=== PATIENT | male | born 1955 | race Caucasian/White ===

== ENCOUNTER 2017-02-21 19:23 | Inpatient (IN) | payer OTHER ==
[~2017-02-21] VITALS: Ht 167.6 cm; Wt 61.0 kg
[2017-02-21 19:47] VITALS: BP 116/57; RESP 20
[2017-02-21 20:25] VITALS: PULSE 96
[2017-02-21] MEDS ORDERED: ACET-141 PO (20:25)
[2017-02-21 20:48] VITALS: BP 116/57; PULSE 98; RESP 20
[2017-02-21] MEDS ORDERED: NACL 0.9% 3 ML SYG IV SCH (21:30)
[2017-02-21] MEDS ORDERED: ONDANSETRON 4 MG INJ IV PRN (21:30)
--- NOTE | 2017-02-21 21:54 | HP ---
Date/Time of Note Date/Time of Note DATE: 02/21/17 TIME: 21:48 Assessment/Plan VTE Prophylaxis VTE Prophylaxis Intervention: LMWH Assessment/Plan Chief Complaint/Hosp Course This is a 7-year-old male being admitted to the telemetry floor for: #1 chest pain: Rule out ACS: At the current time initial troponins at the transferring facility were negative. Will trend cardiac enzymes. EKG at the transferring facility appears to be normal sinus at approximately 90 bpm with no overt ST or T-wave abnormalities. Consult cardiology. Will also order a chest x-ray and echocardiogram.. Will check lipid panel TSH CBC. #2 alcohol withdrawal: Patient blood alcohol level of approximately 242. At the current time will put the patient on a daily banana bag. We will also start patient on Librium taper. Ativan 2 mg every 6 hours for anxiety. Repeat a CMP in the morning. #3 hypertension: Patient is not on any outpatient medications. Will continue to monitor blood pressure at this time and start any medications as indicated. #4 DVT and GI prophylaxis: Lovenox, Protonix Further treatment strategy will be implemented as per the clinical course Problems: HPI/ROS Admit Date/Time Admit Date/Time Feb 21, 2017 at 19:23 Hx of Present Illness Chief complaint: Chest pain This is a 61-year-old male who presented originally to [facility] complaining of chest pain and shortness of breath. Patient stated that about a week ago he had gone to [facility] with a similar symptoms. He states that he had similar symptoms starting today at around 9 AM and the pain was localized in the left chest. He stated that it was tight. It would last on and off for approximately 15-20 minutes. The pain did not radiate. There is no other obvious aggravating or relieving factors. He did report some shortness of breath and some nausea but no diaphoresis. Of note patient also reports daily alcohol use. At the present time he states that his last alcoholic drink was 3 days ago however on the transfer paperwork from [facility] states 2 days ago. Of note patient was also appearing to be going through symptoms of alcohol withdrawal he was given a banana bag and Ativan at the transferring facility. Patient's symptoms started to improve. At the present time patient is comfortable at the bedside. Is not complaining of any chest pain at this time. He does though state that he is feeling a little anxious. Denies any auditory or visual hallucinations. Allergies: NKDA Medications: None ROS Const: As per HPI Eyes : No pain discharge or redness or change in visual acuity ENT: No pain, sore throat, congestion, congestion, dysphagia or discharge Respiratory: No shortness of breath, cough, sputum, wheezing, or pleuritic pain Cardiovascular: As per HPI GI : no change in appetite, abdominal pain, nausea, vomiting, diarrhea, constipation, or change in the color his stool Genitourinary: No dysuria, hematuria, flank pain , discharge or CVA tenderness Musculoskeletal: No joint pain, back pain, neck pain, restricted range of motion in neck or joints Skin: No rash, bruising or hives Neuro: No headache, dizziness, syncope, seizure, focal weakness Endocrine: No polyuria, polydipsia, temperature intolerance Psych: As per HPI PMH/Family/Social Past Medical History Hypertension Past Surgical History Past Surgical Hx: no surgical history Family History Significant Family History: asthma (Father), cancer (Mom colon cancer) Social History Alcohol Use: heavy (12 pack of beer per day last drink apparently 2-3 days ago) Exam/Review of Systems Vital Signs Vitals Vital Signs Date Time Temp Pulse Resp B/P Pulse Ox O2 Delivery O2 Flow Rate FiO2 02/21/17 20:48 98.0 98 20 116/57 96 Room Air Exam Exam General: Patient is well-developed and well-nourished, answering questions appropriately, appears comfortable. HEENT: Atraumatic, normocephalic. The pupils are equal, round and reactive. Extraocular motor are intact Neck: Supple with full range of motion. No rigidity or meningismus Chest: Nontender Lungs: Clear to auscultation bilaterally no crackles rales or wheezing Heart: Normal S1-S2, Regular rhythm and rate. No murmur, S3, or S4 Abdomen: Soft , nontender, nondistended , bowel sounds are present. No guarding no rebound tenderness , No masses or organomegaly. Extremities: Normal to inspection, no edema no cyanosis Neurologic: Normal mental status, speech normal, cranial nerves II through XII are intact, motor and sensory are intact, no focal weakness, denies any auditory or visual hallucinations. Additional Comments EKG normal sinus at approximately 90 bpm with no overt ST or T-wave abnormalities Patient's lab work at the outside facility showed a hemoglobin of 14 hematocrit 14.1 white blood cell count of 4.6 and platelets of 172 sodium 132 potassium 3.8 chloride 90 bicarb 18 BUN 16 creatinine of 0.9 with a GFR of 93 glucose of 147 calcium of 9.1 AST is 96 ALT was 95 alk phos 101 troponin less than 0.009 albumin is 4.7 UA was negative. Urine drug screen was positive for benzodiazepines. Ethanol alcohol level was 242 Medications Medications Current Medications Lorazepam (Ativan) 2 mg Q6H PRN IV ANXIETY; Start 02/21/17 at 21:30; Status UNV Ondansetron HCl (Zofran Inj) 4 mg Q6H PRN IV NAUSEA AND/OR VOMITING; Start at 21:30; Status UNV Aspirin (Aspirin) 81 mg DAILY PO ; Start 02/22/17 at 09:00; Status UNV Pantoprazole (Protonix Iv) 40 mg DAILY@06 IV ; Start 02/22/17 at 06:00; Status UNV Enoxaparin Sodium (Lovenox) 40 mg DAILY SC ; Start 02/22/17 at 09:00; Status UNV Chlordiazepoxide (Librium) 50 mg TID PO ; Start 02/21/17 at 21:40; Stop at 21:39; Status UNV Chlordiazepoxide (Librium) 25 mg QID PO ; Start 02/22/17 at 21:40; Stop at 21:39; Status UNV Chlordiazepoxide (Librium) 25 mg TID PO ; Start 02/23/17 at 21:40; Stop at 21:39; Status UNV ERNESTINE JOHNS Feb 21, 2017 21:54
[2017-02-21 22:36] VITALS: Ht 167.6 cm; Wt 61.0 kg
[2017-02-21 23:12] LABS: TROPONIN-I 0.016 ng/ml (0.00-0.12)
[2017-02-21] MEDS: CHLORDIAZEPOXIDE 25 MG CAP PO SCH (23:12)
[2017-02-21 23:14] LABS: CK-MB 1.07 ng/ml (0.0-2.4)
[2017-02-21] MEDS: LORAZEPAM 2 MG INJ IV PRN (23:19)
[2017-02-22] VITALS (12 sets, daily range): BP systolic 115–166; BP diastolic 65–88; PULSE 58–83; RESP 18–20
[2017-02-22] MEDS: LORAZEPAM 2 MG INJ IV PRN ×3 (05:44→22:23)
[2017-02-22] MEDS: PANTOPRAZOLE 40 MG INJ IV SCH (05:44)
[2017-02-22 07:17] LABS: ADD SCAN DIFF NO
[2017-02-22 07:21] LABS: BASOPHILS % 0.6 % (0.0-2.0); EOSINOPHILS # 0.1 10^3/ul (0.0-0.5); EOSINOPHILS % 2.8 % (0.0-7.0); HEMATOCRIT 37.8 % (42.0-52.0); HEMOGLOBIN 13.1 g/dl (14.0-18.0); LYMPHOCYTES % 31.2 % (15.0-51.0); MEAN CORPUSCULAR HEMOGLOBIN 33.9 pg (29.0-33.0); MEAN CORPUSCULAR HGB CONC 34.7 g/dl (32.0-37.0); MEAN CORPUSCULAR VOLUME 97.9 fl (82.0-101.0); MEAN PLATELET VOLUME 9.8 fl (7.4-10.4); MONOCYTE # 0.3 10^3/ul (0.3-0.9); MONOCYTES % 9.7 % (0.0-11.0); NEUTROPHIL # 1.8 10^3/ul (1.6-7.5); NEUTROPHILS % 55.7 % (39.0-77.0); PLATELET COUNT 130 10^3/UL (140-415); RED BLOOD COUNT 3.86 10^6/ul (4.70-6.10); RED CELL DISTRIBUTION WIDTH 14.2 % (11.5-14.5); WHITE BLOOD COUNT 3.2 10^3/ul (4.8-10.8)
--- NOTE | 2017-02-22 07:23 | RADRPT ---
PROCEDURE: XR Chest. CLINICAL INDICATION: Chest pain TECHNIQUE: A single AP view of the chest was obtained. COMPARISON: None. FINDINGS: No focal airspace opacification, pleural effusion or pneumothorax is seen. The cardiomediastinal si lhouette is mildly enlarged. The osseous structures are unremarkable. IMPRESSION: 1. No radiographic evidence of acute cardiopulmonary disease. 2. Mild cardiomegaly. RPTAT: HH .Soo Ruiz MD, MD Date Time Electronically viewed and signed by .Soo Ruiz MD, on 02/22/2017 07:22 .G/
[2017-02-22 08:04] LABS: ALBUMIN 4.6 g/dl (3.3-4.9); ALBUMIN/GLOBULIN RATIO 2.09; BILIRUBIN,INDIRECT 1.2 mg/dl (0-1.1); BILIRUBIN,TOTAL 1.2 mg/dl (0.2-1.3); CHOL/HDL RATIO 3.2 RATIO; CREATININE 0.84 mg/dl (0.61-1.24); TOTAL PROTEIN 6.8 g/dl (6.1-8.1)
[2017-02-22] MEDS: CHLORDIAZEPOXIDE 25 MG CAP PO SCH ×3 (09:05→21:30)
[2017-02-22] MEDS: ASPIRIN 81 MG TAB PO SCH (09:05)
[2017-02-22] MEDS: ENOXAPARIN 40 MG/0.4 ML SYG SC SCH (09:08)
[2017-02-22 10:03] LABS: TROPONIN-I 0.033 ng/ml (0.00-0.12)
[2017-02-22 10:04] LABS: CK-MB 0.78 ng/ml (0.0-2.4)
--- NOTE | 2017-02-22 12:06 | RADRPT ---
Echocardiogram Report Patient Name: ARIEL OROZCO Gender: Male Date: 1955 Study Date: 22-Feb-2017 Loader Machine: Surinder [facility] Location: [id number] Ref. Physician: ERNESTINE JOHNS Quality: Good Procedures: Transthoracic echocardiogram with complete 2D, M-Mode, and doppler examination. Indications: Chest Pain. 2D/M Mode Doppler Measurement Value Normal Ranges Measurement Value Normal Ranges LVIDd 2D 4.7 3.5 - 5.6 cm AV Peak Darrion 1.3 m/sec LVIDs 2D 3.2 2.1 - 4.1 cm AV Peak PG 6.3 mmHg LVPWd 2D 1.1 0.6 - 1.1 cm LVOT Peak Darrion 1.1 m/sec IVSd 2D 0.8 0.6 - 1.1 cm LVOT Peak PG 4.5 mmHg AoR Diam 2D 3.1 2.0 - 3.7 cm MV E Peak Darrion 0.7 m/sec EDV 2D 101.1 cm3 MV A Peak Darrion 0.8 m/sec ESV 2D 31.3 cm3 MV E/A 1.0 LA Dimen 2D 3.5 2.3 - 4.0 cm MV Decel Time 283 msec MV Decel [place] 3 MV E/A 1.0 TR Peak Darrion 2.0 m/sec TR Peak PG 15.7 mmHg RVSP 19.0 mmHg Findings Left Ventricle: Normal left ventricular systolic function. Normal left ventricular cavity size. Normal left ventricular wall thickness. Ejection fraction is visually estimated at 60 %. Abnormal Diastolic Function. Right Ventricle: Normal right ventricular size. Normal right ventricular systolic function. Left Atrium: The left atrium is normal in size. Right Atrium: The right atrium is normal in size. Mitral Valve: Mitral valve leaflets appear mildly thickened. Mild mitral annular calcification. Mild mitral valve regurgitation. The regurgitation jet is eccentrically directed which may underestimate the severity of mitral regurgitation. Aortic Valve: Normal appearance of the aortic valve. No significant aortic stenosis or insufficiency. Tricuspid Valve: Normal appearance and function of the tricuspid valve with trace physiologic regurgitation. Estimated peak PA systolic pressure 19 mmHg. Pericardium: Normal pericardium with no significant pericardial effusion. Aorta: Normal aortic root. IVC: Normal size and normal respiratory collapse consistent with normal right atrial pressure. Conclusions 1.Normal left ventricular systolic function. Normal left ventricular cavity size. Normal left ventricular wall thickness. Ejection fraction is visually estimated at 60 %. Abnormal Diastolic Function. 2.Normal right ventricular size. Normal right ventricular systolic function. 3.The left atrium is normal in size. 4.The right atrium is normal in size. 5.Mitral valve leaflets appear mildly thickened. Mild mitral annular calcification. Mild mitral valve regurgitation. The regurgitation jet is eccentrically directed which may underestimate the severity of mitral regurgitation. 6.No significant valvular stenosis or regurgitation seen of remaining visualized valves. 7.Normal pericardium with no significant pericardial effusion. Electronically Signed By: Danial Foster 22-Feb-2017 12:06:33 -0700 Patient Name: ARIEL OROZCO Study Date: 22-Feb-2017 [id number]
--- NOTE | 2017-02-22 12:36 | PN ---
Date/Time of Note Date/Time of Note DATE: 02/22/17 TIME: 12:17 Assessment/Plan VTE Prophylaxis VTE Prophylaxis Intervention: ambulation, SCD's Lines/Catheters IV Catheter Type (from Nrsg): Peripheral IV Assessment/Plan Assessment/Plan 61-year-old male who was referred to us from outside emergency room with chest pain and withdrawal symptoms managed as follows: 1. Chest pain now resolved / ACS has been ruled out / echo reviewed 2. Chronic alcoholism 3. Alcoholic liver disease with mild hyperbilirubinemia and transaminitis 4. Mild rhabdomyolysis 5. Dyslipidemia 6. Pancytopenia 7. Hypertension still with fluctuating control Alcohol cessation discussed. SW to provide resources Subjective 24 Hr Interval Summary Free Text/Dictation patient states he continues to have intermittent L sided CP and tremors Exam/Review of Systems Vital Signs Vitals Vital Signs Date Time Temp Pulse Resp B/P Pulse Ox O2 Delivery O2 Flow Rate FiO2 02/22/17 12:11 83 02/22/17 07:52 98.0 18 166/88 99 02/21/17 20:48 Room Air Intake and Output 02/21/17 02/21/17 02/22/17 14:59 22:59 06:59 Intake Total 600 ml Balance 600 ml Exam General: Patient is well-developed and well-nourished, answering questions appropriately, appears comfortable, mildly tremulous HEENT: Atraumatic, normocephalic. The pupils are equal, round and reactive. Extraocular motor are intact Neck: Supple with full range of motion. No rigidity or meningismus Chest: Nontender Lungs: Clear to auscultation bilaterally no crackles rales or wheezing Heart: Normal S1-S2, Regular rhythm and rate. No murmur, S3, or S4 Abdomen: Soft , nontender, nondistended , bowel sounds are present. No guarding no rebound tenderness , No masses or organomegaly. Extremities: Normal to inspection, no edema no cyanosis Neurologic: Normal mental status, speech normal, cranial nerves II through XII are intact, motor and sensory are intact, no focal weakness, denies any auditory or visual hallucinations. Results Result Diagram: 02/22/17 0642 02/22/17 0642 Results 24 hrs Laboratory Tests Test 02/21/17 22:15 02/22/17 06:42 Creatine Kinase 284 H 240 H Creatine Kinase Index 0.4 0.3 Creatinine Kinase MB (Mass) 1.07 0.78 Troponin I 0.016 0.033 White Blood Count 3.2 L Red Blood Count 3.86 L Hemoglobin 13.1 L Hematocrit 37.8 L Mean Corpuscular Volume 97.9 Mean Corpuscular Hemoglobin 33.9 H Mean Corpuscular Hemoglobin Concent 34.7 Red Cell Distribution Width 14.2 Platelet Count 130 L Mean Platelet Volume 9.8 Neutrophils % 55.7 Lymphocytes % 31.2 Monocytes % 9.7 Eosinophils % 2.8 Basophils % 0.6 Nucleated Red Blood Cells % 0.0 Neutrophils # 1.8 Lymphocytes # 1.0 Monocytes # 0.3 Eosinophils # 0.1 Basophils # 0.0 Nucleated Red Blood Cells # 0.0 Sodium Level 136 Potassium Level 4.0 Chloride Level 99 Carbon Dioxide Level 29 Anion Gap 12 Blood Urea Nitrogen 14 Creatinine 0.84 Glucose Level 101 Hemoglobin A1c 5.6 Calcium Level 9.0 Magnesium Level 2.0 Total Bilirubin 1.2 Direct Bilirubin 0.00 Indirect Bilirubin 1.2 H Aspartate Amino Transf (AST/SGOT) 81 H Alanine Aminotransferase (ALT/SGPT) 84 H Alkaline Phosphatase 101 Total Protein 6.8 Albumin 4.6 Globulin 2.20 Albumin/Globulin Ratio 2.09 Triglycerides Level 73 Cholesterol Level 272 H LDL Cholesterol, Calculated 172 HDL Cholesterol 85 H Cholesterol/HDL Ratio 3.2 Thyroid Stimulating Hormone (TSH) Pending Medications Medications Current Medications Lorazepam (Ativan) 2 mg Q6H PRN IV ANXIETY Last administered on 02/22/17 05:44 ; Admin Dose 2 MG; Start 02/21/17 at 21:30 Ondansetron HCl (Zofran Inj) 4 mg Q6H PRN IV NAUSEA AND/OR VOMITING; Start at 21:30 Aspirin (Aspirin) 81 mg DAILY PO Last administered on 02/22/17 09:05; Admin Dose 81 MG; Start 02/22/17 at 09:00 Pantoprazole (Protonix Iv) 40 mg DAILY@06 IV Last administered on 02/22/17 05: 44; Admin Dose 40 MG; Start 02/22/17 at 06:00 Enoxaparin Sodium (Lovenox) 40 mg DAILY SC Last administered on 02/22/17 09:08 ; Admin Dose 40 MG; Start 02/22/17 at 09:00 Chlordiazepoxide (Librium) 50 mg TID PO Last administered on 02/22/17t 09:05; Admin Dose 50 MG; Start 02/21/17 at 22:45; Stop 02/22/17 at 20:59 Chlordiazepoxide (Librium) 25 mg QID PO ; Start 02/22/17 at 21:00; Stop at 20:59 Chlordiazepoxide (Librium) 25 mg TID PO ; Start 02/23/17 at 21:00; Stop at 20:59 Procedures Procedures Echocardiogram Report Patient Name: ARIEL OROZCO Gender: Male Date: 1955 Study Date: 22-Feb-2017 [place] Setter: Surinder [facility] Location: 5564 Ref. Physician: ERNESTINE JOHNS Quality: Good Procedures: Transthoracic echocardiogram with complete 2D, M-Mode, and doppler examination. Indications: Chest Pain. 2D/M Mode Doppler Measurement Value Normal Ranges Measurement Value Normal Ranges LVIDd 2D 4.7 3.5 - 5.6 cm AV Peak Darrion 1.3 m/sec LVIDs 2D 3.2 2.1 - 4.1 cm AV Peak PG 6.3 mmHg LVPWd 2D 1.1 0.6 - 1.1 cm LVOT Peak Darrion 1.1 m/sec IVSd 2D 0.8 0.6 - 1.1 cm LVOT Peak PG 4.5 mmHg AoR Diam 2D 3.1 2.0 - 3.7 cm MV E Peak Darrion 0.7 m/sec EDV 2D 101.1 cm3 MV A Peak Darrion 0.8 m/sec ESV 2D 31.3 cm3 MV E/A 1.0 LA Dimen 2D 3.5 2.3 - 4.0 cm MV Decel Time 283 msec MV Decel [place] 3 MV E/A 1.0 TR Peak Darrion 2.0 m/sec TR Peak PG 15.7 mmHg RVSP 19.0 mmHg Findings Left Ventricle: Normal left ventricular systolic function. Normal left ventricular cavity size. Normal left ventricular wall thickness. Ejection fraction is visually estimated at 60 %. Abnormal Diastolic Function. Right Ventricle: Normal right ventricular size. Normal right ventricular systolic function. Left Atrium: The left atrium is normal in size. Right Atrium: The right atrium is normal in size. Mitral Valve: Mitral valve leaflets appear mildly thickened. Mild mitral annular calcification. Mild mitral valve regurgitation. The regurgitation jet is eccentrically directed which may underestimate the severity of mitral regurgitation. Aortic Valve: Normal appearance of the aortic valve. No significant aortic stenosis or insufficiency. Tricuspid Valve: Normal appearance and function of the tricuspid valve with trace physiologic regurgitation. Estimated peak PA systolic pressure 19 mmHg. Pericardium: Normal pericardium with no significant pericardial effusion. Aorta: Normal aortic root. IVC: Normal size and normal respiratory collapse consistent with normal right atrial pressure. Conclusions 1. Normal left ventricular systolic function. Normal left ventricular cavity size. Normal left ventricular wall thickness. Ejection fraction is visually estimated at 60 %. Abnormal Diastolic Function. 2. Normal right ventricular size. Normal right ventricular systolic function. 3. The left atrium is normal in size. 4. The right atrium is normal in size. 5. Mitral valve leaflets appear mildly thickened. Mild mitral annular calcification. Mild mitral valve regurgitation. The regurgitation jet is eccentrically directed which may underestimate the severity of mitral regurgitation. 6. No significant valvular stenosis or regurgitation seen of remaining visualized valves. 7. Normal pericardium with no significant pericardial effusion. Electronically Signed By: Danial Foster 22-Feb-2017 12:06:33 -0700 Patient Name: ARIEL OROZCO Study Date: 22-Feb-2017 NARDA COSME Feb 22, 2017 12:31
[2017-02-22 13:04] LABS: THYROID STIMULATING HORMONE 1.19 MIU/L (0.465-4.680)
--- NOTE | 2017-02-22 15:27 | CONS ---
Date/Time of Note Date/Time of Note DATE: 02/22/17 TIME: 15:22 Assessment/Plan Assessment/Plan Additional Assessment/Plan Chest pain Preserved ejection fraction Mitral regurgitation Hypertension Alcohol use Thrombocytopenia -Patient with symptoms of chest burning with deep inspiration and with arm movements. With exertion, his symptoms improved. Serial cardiac enzymes are negative, ECG without significant ischemic abnormalities, echocardiogram with preserved ejection fraction. Patient does have a history of hypertension as well as mitral regurgitation noted on echocardiogram. Would consider starting MILTON inhibitor for hypertension control as well as afterload reduction given mitral regurgitation. Given his alcohol use and thrombocytopenia, I am hesitant to start aspirin prophylaxis therapy at the current time. Otherwise, no further inpatient cardiac workup needed at the current time. Consultation Date/Type/Reason Admit Date/Time Feb 21, 2017 at 19:23 Type of Consultation: cv Reason for Consultation Chest pain Hx of Present Illness This is a 61-year-old male with past medical history of hypertension, alcohol use who presents with chest pain. Patient complains of pain in his chest with eating and with deep breaths. Pain is burning-like at times. Occasionally worse with pushing on his chest and moving his arms. Exertion improves his symptoms. He denies any shortness of breath. He denies any dizziness or lightheadedness. Because of the above symptoms, he came to the emergency room for evaluation and care. His symptoms have since almost fully resolved. He denies abdominal pain, nausea or vomiting. He was previously on antihypertensive medications but ran out "a long time ago" and has not been taking anything since. 12 point review of systems was performed with all pertinent positives and negatives mentioned above and all else is negative Past Medical History Medical History: hypertension Past Surgical History Past Surgical Hx: no surgical history Family History Significant Family History: no pertinent family hx Social History Alcohol Use: heavy (12 pack of beer per day last drink apparently 2-3 days ago) Smoking Status: Never smoker Exam/Review of Systems Vital Signs Vitals Vital Signs Date Time Temp Pulse Resp B/P Pulse Ox O2 Delivery O2 Flow Rate FiO2 02/22/17 12:35 98.0 75 18 117/68 98 02/21/17 20:48 Room Air Intake and Output 02/21/17 02/21/17 02/22/17 15:00 23:00 07:00 Intake Total 600 ml Balance 600 ml Exam Following commands, a tremor noted at times, no apparent distress, eating lunch Constitutional: alert, oriented Head: normocephalic Neck: supple Respiratory: clear to auscultation, normal air movement Cardiovascular: other (S1-S2 heard), regular rate and rhythm, systolic murmur Gastrointestinal: bowel sounds, non-tender, soft Extremities: other (No edema) Results Result Diagram: 02/22/17 0642 02/22/17 0642 Results 24 hrs Laboratory Tests Test 02/21/17 22:15 02/22/17 06:42 Creatine Kinase 284 H 240 H Creatine Kinase Index 0.4 0.3 Creatinine Kinase MB (Mass) 1.07 0.78 Troponin I 0.016 0.033 White Blood Count 3.2 L Red Blood Count 3.86 L Hemoglobin 13.1 L Hematocrit 37.8 L Mean Corpuscular Volume 97.9 Mean Corpuscular Hemoglobin 33.9 H Mean Corpuscular Hemoglobin Concent 34.7 Red Cell Distribution Width 14.2 Platelet Count 130 L Mean Platelet Volume 9.8 Neutrophils % 55.7 Lymphocytes % 31.2 Monocytes % 9.7 Eosinophils % 2.8 Basophils % 0.6 Nucleated Red Blood Cells % 0.0 Neutrophils # 1.8 Lymphocytes # 1.0 Monocytes # 0.3 Eosinophils # 0.1 Basophils # 0.0 Nucleated Red Blood Cells # 0.0 Sodium Level 136 Potassium Level 4.0 Chloride Level 99 Carbon Dioxide Level 29 Anion Gap 12 Blood Urea Nitrogen 14 Creatinine 0.84 Glucose Level 101 Hemoglobin A1c 5.6 Calcium Level 9.0 Magnesium Level 2.0 Total Bilirubin 1.2 Direct Bilirubin 0.00 Indirect Bilirubin 1.2 H Aspartate Amino Transf (AST/SGOT) 81 H Alanine Aminotransferase (ALT/SGPT) 84 H Alkaline Phosphatase 101 Total Protein 6.8 Albumin 4.6 Globulin 2.20 Albumin/Globulin Ratio 2.09 Triglycerides Level 73 Cholesterol Level 272 H LDL Cholesterol, Calculated 172 HDL Cholesterol 85 H Cholesterol/HDL Ratio 3.2 Thyroid Stimulating Hormone (TSH) 1.190 Medications Medications Current Medications Lorazepam (Ativan) 2 mg Q6H PRN IV ANXIETY Last administered on 02/22/17t 12:28 ; Admin Dose 2 MG; Start 02/21/17 at 21:30 Ondansetron HCl (Zofran Inj) 4 mg Q6H PRN IV NAUSEA AND/OR VOMITING; Start at 21:30 Aspirin (Aspirin) 81 mg DAILY PO Last administered on 02/22/17 09:05; Admin Dose 81 MG; Start 02/22/17 at 09:00 Pantoprazole (Protonix Iv) 40 mg DAILY@06 IV Last administered on 02/22/17 05: 44; Admin Dose 40 MG; Start 02/22/17 at 06:00 Enoxaparin Sodium (Lovenox) 40 mg DAILY SC Last administered on 02/22/17 09:08 ; Admin Dose 40 MG; Start 02/22/17 at 09:00 Chlordiazepoxide (Librium) 50 mg TID PO Last administered on 02/22/17 12:28; Admin Dose 50 MG; Start 02/21/17 at 22:45; Stop 02/22/17 at 20:59 Chlordiazepoxide (Librium) 25 mg QID PO ; Start 02/22/17 at 21:00; Stop at 20:59 Chlordiazepoxide (Librium) 25 mg TID PO ; Start 02/23/17 at 21:00; Stop at 20:59 Procedures Procedures ECG done yesterday demonstrates sinus rhythm at 96 bpm, normal QRS duration, no significant STT wave abnormalities Danial Foster DO Feb 22, 2017 15:27
[2017-02-22] MEDS ORDERED: LISI-313 PO (16:26)
[2017-02-22] MEDS ORDERED: CHLO25CA9 PO (16:26)
[2017-02-22] MEDS ORDERED: FOLI-49 PO (16:26)
[2017-02-22] MEDS ORDERED: MULTI PO (16:26)
[2017-02-22] MEDS: DEXTROSE 5%-0.45% NACL 1,000 ML IV SCH (17:06)
[2017-02-23] VITALS (13 sets, daily range): BP systolic 117–154; BP diastolic 61–77; PULSE 50–67; RESP 20–79
[2017-02-23] MEDS: DEXTROSE 5%-0.45% NACL 1,000 ML IV SCH ×3 (00:57→16:30)
[2017-02-23] MEDS: PANTOPRAZOLE 40 MG INJ IV SCH (05:36)
[2017-02-23] MEDS: CHLORDIAZEPOXIDE 25 MG CAP PO SCH ×3 (08:22→17:25)
[2017-02-23] MEDS: LORAZEPAM 2 MG INJ IV PRN (08:22)
[2017-02-23] MEDS: ASPIRIN 81 MG TAB PO SCH (08:22)
[2017-02-23] MEDS: ENOXAPARIN 40 MG/0.4 ML SYG SC SCH (08:26)
[2017-02-23] MEDS ORDERED: MULTIVITAMINS 10 ML, THIAMINE 100 MG, FOLIC ACID 1 MG in SOD CHLORIDE 0.9% 1,000 ML IVPB SCH (09:00)
[2017-02-23] MEDS ORDERED: LISINOPRIL 5 MG TAB PO SCH (09:00)
[2017-02-23 09:21] LABS: ALBUMIN/GLOBULIN RATIO 1.66; BILIRUBIN,INDIRECT 0.5 mg/dl (0-1.1); BILIRUBIN,TOTAL 0.5 mg/dl (0.2-1.3); CALCIUM 9.6 mg/dl (8.4-10.2); CREATININE 0.73 mg/dl (0.61-1.24); PHOSPHORUS 3.8 mg/dl (2.5-4.9); POTASSIUM 3.7 mmol/L (3.5-5.1); TOTAL PROTEIN 6.4 g/dl (6.1-8.1)
--- NOTE | 2017-02-23 13:29 | PDOCDIS ---
Discharge Instructions DIAGNOSIS Discharge Diagnosis: chest leoncio / alcohol withdrawal CONDITION Patient Condition: Stable HOME CARE INSTRUCTIONS: Diet Instructions: Low Fat /Cholesterol ACTIVITY: Activity Restrictions: Slowly Increase Activity Rest between Activity OTHER ORDERS: Other Orders: Followup with your primary doctor within the next 1-2 weeks. If you don't have one please let someone know, we can give you resources that may help you pick one. You may call Dr Perry Silva's office. he's accepting new patients Name, Degree: Perry Silva MD Specialty: Internal Medicine Comments: Office Address: [address] [place] [address] [place], [place] [id number] Office Office You may also call your insurance company to assign one to you. Review your medication list with your nurse before leaving and if you need new prescriptions please let your nurse know. I may have made changes to your home medications or given you new prescriptions , please let your primary doctor know as well. Stay compliant with your medications and report any side effects to your PCP or pharmacist. Return to the ER if you have any concerns and cannot reach your doctors or call your insurance company, they usually have a nurse that can help you. NARDA COSME Feb 23, 2017 13:29
[2017-02-23] MEDS ORDERED: HYDROCODONE/APAP (5/325) TAB PO PRN (13:30)
--- NOTE | 2017-02-23 15:34 | CONS ---
Date/Time of Note Date/Time of Note DATE: 02/23/17 TIME: 15:32 Assessment/Plan Assessment/Plan Additional Assessment/Plan Chest pain Preserved ejection fraction Mitral regurgitation Hypertension Alcohol use Thrombocytopenia -Patient's chest pain is currently reproducible. Serial cardiac enzymes have been negative, ECG without significant ischemic abnormalities and preserved ejection fraction. Symptoms do not appear cardiac in origin at the current time. No further inpatient cardiac workup needed at the current time. Consultation Date/Type/Reason Admit Date/Time Feb 21, 2017 at 19:23 Initial Consult Date Type of Consultation: cv 24 HR Interval Summary Free Text/Dictation Denies shortness of breath, complaining of anxiety and chest pain when pushing on chest and moving arms. Exam/Review of Systems Vital Signs Vitals Vital Signs Date Time Temp Pulse Resp B/P Pulse Ox O2 Delivery O2 Flow Rate FiO2 02/23/17 12:27 62 02/23/17 11:59 97.6 20 120/67 98 02/21/17 20:48 Room Air Intake and Output 02/22/17 02/22/17 02/23/17 15:00 23:00 07:00 Intake Total 800 ml Balance 800 ml Exam Appears mildly anxious Constitutional: alert, oriented Head: normocephalic Respiratory: clear to auscultation, normal air movement Cardiovascular: other (S1-S2 heard), regular rate and rhythm Gastrointestinal: bowel sounds, non-tender, soft Extremities: other (No edema) Results Result Diagram: 02/22/17 0642 02/23/17 0625 Results 24 hrs Laboratory Tests Test 02/23/17 06:25 Sodium Level 141 Potassium Level 3.7 Chloride Level 103 Carbon Dioxide Level 28 Anion Gap 14 Blood Urea Nitrogen 11 Creatinine 0.73 Glucose Level 133 Calcium Level 9.6 Phosphorus Level 3.8 Magnesium Level 2.0 Total Bilirubin 0.5 Direct Bilirubin 0.00 Indirect Bilirubin 0.5 Aspartate Amino Transf (AST/SGOT) 67 H Alanine Aminotransferase (ALT/SGPT) 68 Alkaline Phosphatase 89 Total Protein 6.4 Albumin 4.0 Globulin 2.40 Albumin/Globulin Ratio 1.66 Medications Medications Current Medications Lorazepam (Ativan) 2 mg Q6H PRN IV ANXIETY Last administered on 02/23/17t 08:22 ; Admin Dose 2 MG; Start 02/21/17 at 21:30 Ondansetron HCl (Zofran Inj) 4 mg Q6H PRN IV NAUSEA AND/OR VOMITING; Start at 21:30 Aspirin (Aspirin) 81 mg DAILY PO Last administered on 02/23/17 08:22; Admin Dose 81 MG; Start 02/22/17 at 09:00 Pantoprazole (Protonix Iv) 40 mg DAILY@06 IV Last administered on 02/23/17 05: 36; Admin Dose 40 MG; Start 02/22/17 at 06:00 Enoxaparin Sodium (Lovenox) 40 mg DAILY SC Last administered on 02/23/17 08:26 ; Admin Dose 40 MG; Start 02/22/17 at 09:00 Chlordiazepoxide (Librium) 25 mg QID PO Last administered on 02/23/17 13:01; Admin Dose 25 MG; Start 02/22/17 at 21:00; Stop 02/23/17 at 20:59 Chlordiazepoxide (Librium) 25 mg TID PO ; Start 02/23/17 at 21:00; Stop at 20:59 Lisinopril 5 mg 5 mg DAILY PO Last administered on 02/23/17 08:22; Admin Dose 5 MG; Start 02/23/17 at 09:00 Multivitamins 10 ml/Thiamine HCl 100 mg/Folic Acid 1 mg/Sodium Chloride 1,011.2 ml @ 125 mls/ hr DAILY@09 IVPB Last administered on 02/23/17 11:07; Admin Dose 125 MLS/HR; Start 02/23/17 at 09:00 Dextrose/Sodium Chloride (D5-1/2ns) 1,000 ml @ 125 mls/hr Q8H IV Last administered on 02/23/17 00:57; Admin Dose 125 MLS/HR; Start 02/22/17 at 16:30 Acetaminophen/ Hydrocodone Bitart (Flushing (5/325)) 1 tab Q6H PRN PO pain; Start 02/23/17 at 13:30 Danial Foster DO Feb 23, 2017 15:34
--- NOTE | 2017-02-23 19:26 | DS ---
Date/Time of Note Date/Time of Note DATE: 02/23/17 TIME: 19:24 Discharge Summary Admission/Discharge Info Admit Date/Time Feb 21, 2017 at 19:23 Discharge Date/Time Feb 23, 2017 at 17:32 Hx of Present Illness Chief complaint: Chest pain This is a 61-year-old male who presented originally to [facility] complaining of chest pain and shortness of breath. Patient stated that about a week ago he had gone to [facility] with a similar symptoms. He states that he had similar symptoms starting today at around 9 AM and the pain was localized in the left chest. He stated that it was tight. It would last on and off for approximately 15-20 minutes. The pain did not radiate. There is no other obvious aggravating or relieving factors. He did report some shortness of breath and some nausea but no diaphoresis. Of note patient also reports daily alcohol use. At the present time he states that his last alcoholic drink was 3 days ago however on the transfer paperwork from [facility] states 2 days ago. Of note patient was also appearing to be going through symptoms of alcohol withdrawal he was given a banana bag and Ativan at the transferring facility. Patient's symptoms started to improve. At the present time patient is comfortable at the bedside. Is not complaining of any chest pain at this time. He does though state that he is feeling a little anxious. Denies any auditory or visual hallucinations. Allergies: NKDA Medications: None . Home Meds Active Scripts Folic Acid* (Folic Acid*) 1 Mg Tablet, 1 MG PO DAILY for 30 Days, TAB 2 Refills Prov:NARDA COSME. 02/22/17 Multivitamins* (Theragran*) 1 Tab Tab, 1 TAB PO DAILY for 30 Days, #2 TAB Prov:NARDA COSME . 02/22/17 Lisinopril* (Lisinopril*) 5 Mg Tablet, 5 MG PO DAILY for 30 Days, TAB 2 Refills Prov:NARDA COSME Warner 02/22/17 Chlordiazepoxide* (Chlordiazepoxide*) 25 Mg Capsule, 25 MG PO TID Y for CONTROL WITHDRAWAL SYMPTOMS, #30 CAP Prov:NARDA COSME . 02/22/17 Discontinued Reported Medications Acetaminophen* (Acetaminophen*) 500 MG Extra Strength Tablet, 500 MG PO DAILY for chest pain for 30 Days, #1 TAB 02/21/17 Primary Care Provider Not On Staff Doctor Pending Labs Laboratory Tests Test 02/23/17 06:25 Sodium Level 141mmol/L (135-144) Potassium Level 3.7mmol/L (3.5-5.1) Chloride Level 103mmol/L (97-110) Carbon Dioxide Level 28mmol/L (21-31) Anion Gap 14 (8-16) Blood Urea Nitrogen 11mg/dl (7-20) Creatinine 0.73mg/dl (0.61-1.24) Glucose Level 133mg/dl (70-220) Calcium Level 9.6mg/dl (8.4-10.2) Phosphorus Level 3.8mg/dl (2.5-4.9) Magnesium Level 2.0mg/dl (1.7-2.5) Total Bilirubin 0.5mg/dl (0.2-1.3) Direct Bilirubin 0.00mg/dl (0.00-0.20) Indirect Bilirubin 0.5mg/dl (0-1.1) Aspartate Amino Transf (AST/SGOT) 67IU/L (15-46) Alanine Aminotransferase (ALT/SGPT) 68IU/L (13-69) Alkaline Phosphatase 89IU/L (42-121) Total Protein 6.4g/dl (6.1-8.1) Albumin 4.0g/dl (3.3-4.9) Globulin 2.40g/dl (1.3-3.2) Albumin/Globulin Ratio 1.66 NARDA COSME Feb 23, 2017 19:26
[2017-02-23] MEDS ORDERED: CHLORDIAZEPOXIDE 25 MG CAP PO SCH (21:00)
== END 2017-02-23 17:32 | disposition home or self-care (01) | DRG 313 ==
LOC: MS4 19:23
PROVIDERS: ADMIT Family Medicine; ATTEND Family Medicine
DX: R07.9 Chest pain, unspecified (principal); D61.818 Other pancytopenia; M62.82 Rhabdomyolysis; D69.6 Thrombocytopenia, unspecified; F10.230 Alcohol dependence with withdrawal, uncomplicated; Y90.8 Blood alcohol level of 240 mg/100 ml or more; I10 Essential (primary) hypertension; E78.5 Hyperlipidemia, unspecified
CPT/HCPCS: 71010; 80053; 80061; 80076; 82550; 82553; 83036; 83735; 84100; 84443; 84484; 85025; 93306; C9113; J1650; J2060; J3411; J7030; J7042